=== PATIENT | male | born 1945 | race Hispanic/Latino ===

== ENCOUNTER 2017-11-12 09:37 | Inpatient (IN) | payer OTHER ==
[~2017-11-12] VITALS: Ht 167.6 cm; Wt 87.6 kg
[2017-11-12] MEDS ORDERED: ENOXAPARIN SODIUM 100 MG/1 ML SQ ONE (10:16)
[2017-11-12] MEDS ORDERED: ASPIRIN 81MG TAB.CHEW ONE (10:16)
[2017-11-12 10:17] LABS: BASOPHILS % (AUTO) 0.3 % (0.0-5.0); EOSINOPHILS % (AUTO) 0.1 % (0.0-8.0); HEMATOCRIT 37.1 % (42-54); LYMPHOCYTES % (AUTO) 14.6 % (21.0-51.0); MEAN CORPUSCULAR HEMOGLOBIN 31.1 pg (27.0-33.0); MEAN CORPUSCULAR HGB CONC 34.1 g/dL (32.0-36.0); MEAN CORPUSCULAR VOLUME 91.1 fL (79-99); MONOCYTES % (AUTO) 7.9 % (3.0-13.0); NEUTROPHILS % (AUTO) 77.1 % (40.0-77.0); PLATELET COUNT (AUTO) 107 K/uL (130-400); RED BLOOD CELL COUNT(AUTO) 4.08 MIL/uL (4.50-6.20); RED CELL DISTRIBUTION WIDTH 12.7 % (11.0-15.5); WHITE BLOOD COUNT (AUTO) 6.8 K/uL (4.8-10.8)
[2017-11-12] MEDS ORDERED: CLOPIDOGREL BISULFATE 75 MG TAB ONE (10:17)
[2017-11-12 10:41] LABS: CREATININE 0.9 mg/dL (0.5-1.5)
[2017-11-12 10:54] LABS: ALBUMIN 3.7 g/dL (3.5-5.0); BILIRUBIN,TOTAL 0.4 mg/dL (0.2-1.0); CREATINE KINASE MB 1.4 ng/mL (0.5-3.6); TOTAL PROTEIN, SERUM 6.7 g/dL (6.0-8.3)
[2017-11-12 12:25] VITALS: BP 138/80
[2017-11-12 16:04] VITALS: BP 122/69
[2017-11-12 16:07] VITALS: BP 122/69
[2017-11-12] MEDS ORDERED: DEXTROSE 5 %-0.45 % NACL 1,000 ML IV SCH (16:45)
[2017-11-12] MEDS ORDERED: NITROGLYCERIN 0.4 MG SL TAB SL PRN (16:45)
[2017-11-12 17:09] LABS: CREATINE KINASE MB 0.7 ng/mL (0.5-3.6)
[2017-11-12 17:19] LABS: TROPONIN I 1.52 ng/mL (0.00-0.06)
[2017-11-12] MEDS: NITROGLYCERIN 1GM/1 INCH PACKET TD SCH ×2 (17:55→22:08)
[2017-11-12 19:18] VITALS: BP 122/63
[2017-11-12] MEDS: CARVEDILOL 3.125 MG TABLET PO SCH (21:13)
[2017-11-12 23:02] LABS: CREATINE KINASE MB 0.6 ng/mL (0.5-3.6)
[2017-11-12 23:07] LABS: TROPONIN I 1.33 ng/mL (0.00-0.06)
[2017-11-12 23:48] VITALS: BP 116/60
[2017-11-13] VITALS (17 sets, daily range): BP systolic 101–158; BP diastolic 46–111
[2017-11-13] MEDS: NITROGLYCERIN 1GM/1 INCH PACKET TD SCH ×2 (04:00→08:32)
[2017-11-13 04:47] LABS: INR 1.05 (0.85-1.15); PARTIAL THROMBOPLASTIN TIME 27.6 SEC (26.3-35.5)
[2017-11-13] MEDS ORDERED: HEPARIN SODIUM 1000UNIT/ML 10ML VIAL ONE ×3 (07:48→14:13)
[2017-11-13] MEDS ORDERED: IOPAMIDOL-370 100 ML VIAL IV ONE (07:49)
[2017-11-13] MEDS ORDERED: LIDOCAINE HCL 2% 20ML ONE (07:49)
[2017-11-13] MEDS ORDERED: IOPAMIDOL-370 75 ML VIAL IV ONE (07:49)
[2017-11-13] MEDS: CARVEDILOL 3.125 MG TABLET PO SCH (08:32)
[2017-11-13] MEDS ORDERED: ENOXAPARIN SODIUM 80 MG/0.8 ML SQ SCH (09:00)
[2017-11-13] MEDS ORDERED: CLOPIDOGREL BISULFATE 75 MG TAB PO SCH (09:00)
[2017-11-13] MEDS ORDERED: HEPARIN 25000 UNITS/250 ML D5W 250 ML IV ONE (09:28)
[2017-11-13] MEDS ORDERED: HEPARIN 25000 UNITS/250 ML D5W 250 ML IV PRN (09:45)
[2017-11-13 09:54] LABS: HEMOGLOBIN A1C 5.5 % (4.0-6.0)
[2017-11-13] MEDS ORDERED: CEFUROXIME 1.5GM+NS 100ML 100 ML IV SCH ×2 (11:45→23:00)
[2017-11-13] MEDS ORDERED: NITROGLYCERIN 1GM/1 INCH PACKET TD SCH (11:56)
[2017-11-13] MEDS ORDERED: CEFUROXIME SODIUM 1.5 GM VIAL IVP SCH ×2 (12:00→23:00)
[2017-11-13] MEDS: WATER FOR INJECTION,STERILE 20 ML VIAL IJ SCH (12:00)
[2017-11-13] MEDS ORDERED: SODIUM BICARB 8.4% 50ML SYRINGE ONE ×3 (13:05→18:16)
[2017-11-13] MEDS ORDERED: NITROGLYCERIN 50 MG/D5% WATER 1 BOT ONE (13:06)
[2017-11-13] MEDS ORDERED: AMINOCAPROIC ACID 250 MG/ML 20 ML VIAL IV ONE ×2 (13:07→13:19)
[2017-11-13] MEDS ORDERED: ESMOLOL HCL 10 MG/ML 10 ML VIAL ONE (13:18)
[2017-11-13] MEDS ORDERED: AMIODARONE HCL 900MG/18ML IV ONE (13:18)
[2017-11-13] MEDS ORDERED: EPINEPHRINE 1 MG/ML AMPULE ONE (13:18)
[2017-11-13] MEDS ORDERED: ROCURONIUM BROMIDE 10MG/1ML 5ML VL ONE ×2 (13:18→18:16)
[2017-11-13] MEDS ORDERED: PROTAMINE SULFATE 10 MG/ML 25ML VIAL IV ONE (13:18)
[2017-11-13] MEDS ORDERED: GLYCOPYRROLATE 0.2 MG/ML 5 ML VIAL ONE (13:18)
[2017-11-13] MEDS ORDERED: MILRINONE-D5W 20 MG/100 ML 0 ML IV ONE (13:18)
[2017-11-13] MEDS ORDERED: NEOSTIGMINE METHYLSULFATE 1MG/ML IV ONE (13:18)
[2017-11-13] MEDS ORDERED: FENTANYL CITRATE PF 50 MCG/1 ML 20ML VIAL IJ ONE (13:19)
[2017-11-13] MEDS ORDERED: NOREPINEPHRINE BITARTRATE 1 MG/1 ML ML IV ONE (13:19)
[2017-11-13] MEDS ORDERED: CALCIUM CHLORIDE 100 MG/ML 10 ML SYG IVP ONE ×4 (13:19→18:17)
[2017-11-13] MEDS ORDERED: PROPOFOL 10 MG/ML 20ML VIAL IV ONE (13:20)
[2017-11-13] MEDS ORDERED: MIDAZOLAM HCL 1 MG/ML 5ML VIAL ONE (13:20)
[2017-11-13] MEDS ORDERED: THROMBIN-JMI 5000 UNIT/VIAL TP ONE (13:57)
[2017-11-13 14:07] LABS: ABG BASE EXCESS -2.3 mmol/L (-2.0-3.0); ABG HCO3 22.1 mmol/L (21.0-28.0); ABG OXYGEN SATURATION 90.3 % (95.0-99.0); ABG PCO2 37 mmHg (35-48)
[2017-11-13] MEDS ORDERED: OCTYL 2-CYANOACRYLATE 1 EACH TP ONE (14:13)
[2017-11-13] MEDS ORDERED: BACITRACIN 50,000 UNIT VIAL ONE (14:14)
[2017-11-13] MEDS ORDERED: PAPAVERINE HCL 30 MG/ML 2ML VIAL ONE (14:14)
[2017-11-13] MEDS ORDERED: SODIUM CHLORIDE 0.9% 500ML 500 ML IV SCH (14:57)
[2017-11-13] MEDS ORDERED: SODIUM CHLORIDE 0.9% 10 ML VIAL IVP PRN (15:00)
[2017-11-13] MEDS ORDERED: NITROGLYCERIN 50 MG/D5% WATER 250 BOT IV SCH (15:00)
[2017-11-13] MEDS ORDERED: MORPHINE SULFATE 2 MG/ML 1ML SYG IV PRN (15:00)
[2017-11-13] MEDS ORDERED: POTASSIUM PHOS 15 mMOL+NS250ML 250 ML IV PRN (15:00)
[2017-11-13] MEDS ORDERED: HYDROCODONE/ACETAMINOPHEN 5/325 MG TAB PO PRN ×2 (15:00)
[2017-11-13] MEDS ORDERED: CALCIUM GLUCONATE 1 GM in SODIUM CHLORIDE 0.9% 50 ML IV PRN (15:00)
[2017-11-13] MEDS ORDERED: PROPOFOL 1000 MG/100 ML 100 ML IV PRN (15:00)
[2017-11-13] MEDS ORDERED: ACETAMINOPHEN 650 MG SUPPOSITORY RC PRN (15:00)
[2017-11-13] MEDS ORDERED: SODIUM CHLORIDE 0.9% 250 ML IV PRN (15:00)
[2017-11-13] MEDS ORDERED: EPINEPHRINE 2 MG in DEXTROSE 5%-WATER 250 ML IV PRN (15:00)
[2017-11-13] MEDS ORDERED: ACETAMINOPHEN 325 MG TAB PO PRN (15:00)
[2017-11-13] MEDS ORDERED: SODIUM CHLORIDE 0.9% 1000ML 1,000 ML IV SCH (15:00)
[2017-11-13] MEDS ORDERED: MAGNESIUM 2GM PREMIX 50ML 50 ML IV PRN (15:00)
[2017-11-13] MEDS ORDERED: INSULIN REGULAR, HUMAN 3ML 100 UNIT in SODIUM CHLORIDE 0.9% 99 ML IV SCH ×2 (15:00)
[2017-11-13] MEDS ORDERED: GLUCAGON 1MG KIT 1 MG ML IM PRN (15:00)
[2017-11-13] MEDS ORDERED: DEXTROSE 50%-WATER 50 ML DISP.SYRIN IV PRN (15:00)
[2017-11-13] MEDS ORDERED: ONDANSETRON HCL 4 MG/2 ML VIAL IV PRN (15:00)
[2017-11-13] MEDS ORDERED: ALBUMIN (HUMAN) 5% 250 ML IV PRN (15:00)
[2017-11-13 15:16] LABS: ABG BASE EXCESS -0.7 mmol/L (-2.0-3.0); ABG HCO3 22.3 mmol/L (21.0-28.0); ABG OXYGEN SATURATION 99.3 % (95.0-99.0); ABG PCO2 32 mmHg (35-48)
[2017-11-13] MEDS ORDERED: CEFUROXIME SODIUM 1.5 GM VIAL ONE (15:23)
[2017-11-13] MEDS ORDERED: POTASSIUM CHLORIDE 20MEQ/100ML 100 ML IV ONE (15:27)
[2017-11-13] MEDS ORDERED: MAGNESIUM SULFATE 1 GM/2 ML VIAL ONE (15:27)
[2017-11-13 16:18] LABS: ABG BASE EXCESS -2.3 mmol/L (-2.0-3.0); ABG PCO2 42 mmHg (35-48)
[2017-11-13 16:58] LABS: ABG BASE EXCESS 1.6 mmol/L (-2.0-3.0); ABG HCO3 25.6 mmol/L (21.0-28.0); ABG PCO2 38 mmHg (35-48)
[2017-11-13 18:13] LABS: ABG BASE EXCESS -5.2 mmol/L (-2.0-3.0); ABG HCO3 18.5 mmol/L (21.0-28.0); ABG OXYGEN SATURATION 98.9 % (95.0-99.0); ABG PCO2 30 mmHg (35-48)
[2017-11-13] MEDS ORDERED: SODIUM BICARB 50MEQ 50ML VIAL ONE ×4 (18:16→22:02)
[2017-11-13 19:13] LABS: ABG BASE EXCESS 0.2 mmol/L (-2.0-3.0); ABG OXYGEN SATURATION 96.2 % (95.0-99.0); ABG PCO2 41 mmHg (35-48)
[2017-11-13 19:16] LABS: HEMATOCRIT 35.8 % (42-54); MEAN CORPUSCULAR HEMOGLOBIN 30.8 pg (27.0-33.0); MEAN CORPUSCULAR HGB CONC 33.8 g/dL (32.0-36.0); MEAN CORPUSCULAR VOLUME 91.1 fL (79-99); PLATELET COUNT (AUTO) 142 K/uL (130-400); RED BLOOD CELL COUNT(AUTO) 3.93 MIL/uL (4.50-6.20); RED CELL DISTRIBUTION WIDTH 12.6 % (11.0-15.5); WHITE BLOOD COUNT (AUTO) 21.6 K/uL (4.8-10.8)
[2017-11-13 19:28] LABS: CREATININE 1.2 mg/dL (0.5-1.5); MAGNESIUM 1.5 mg/dL (1.80-2.40); PHOSPHORUS 4.8 mg/dL (2.5-4.9); POTASSIUM 3.9 mmol/L (3.5-5.1)
[2017-11-13] MEDS: POTASSIUM CHLORIDE 20MEQ/100ML 100 ML IV PRN ×3 (19:31→23:19)
[2017-11-13] MEDS: MORPHINE SULFATE 4 MG/1ML SYG IV PRN (19:56)
[2017-11-13] MEDS: NOREPINEPHRINE 4MG/NS 250ML 250 ML IV PRN (20:28)
[2017-11-13 21:51] LABS: ABG HCO3 22.9 mmol/L (21.0-28.0); ABG PCO2 40 mmHg (35-48)
[2017-11-13 21:55] LABS: ABG BASE EXCESS -4.2 mmol/L (-2.0-3.0); ABG HCO3 20.4 mmol/L (21.0-28.0); ABG OXYGEN SATURATION 97.9 % (95.0-99.0); ABG PCO2 36 mmHg (35-48)
[2017-11-13] MEDS: SODIUM BICARB 8.4% 50ML SYRINGE IV PRN ×2 (21:58→22:03)
[2017-11-13] MEDS ORDERED: WATER FOR INJECTION,STERILE 20 ML VIAL IJ SCH (23:00)
[2017-11-13 23:10] LABS: ABG BASE EXCESS 2.8 mmol/L (-2.0-3.0); ABG HCO3 27.4 mmol/L (21.0-28.0); ABG OXYGEN SATURATION 95.7 % (95.0-99.0); ABG PCO2 42 mmHg (35-48)
[2017-11-14] VITALS (28 sets, daily range): BP systolic 102–140; BP diastolic 44–66
[2017-11-14] MEDS: POTASSIUM CHLORIDE 20MEQ/100ML 100 ML IV PRN (00:40)
[2017-11-14] MEDS: MORPHINE SULFATE 4 MG/1ML SYG IV PRN (01:00)
[2017-11-14 03:11] LABS: ABG BASE EXCESS 1.8 mmol/L (-2.0-3.0); ABG HCO3 26.4 mmol/L (21.0-28.0); ABG OXYGEN SATURATION 96.8 % (95.0-99.0); ABG PCO2 42 mmHg (35-48)
[2017-11-14] MEDS: WATER FOR INJECTION,STERILE 20 ML VIAL IJ SCH ×3 (04:21→17:36)
[2017-11-14] MEDS: CEFUROXIME SODIUM 1.5 GM VIAL IVP SCH ×2 (04:21→17:36)
[2017-11-14 04:28] LABS: HEMATOCRIT 34.1 % (42-54); MEAN CORPUSCULAR HEMOGLOBIN 31.8 pg (27.0-33.0); MEAN CORPUSCULAR HGB CONC 34.5 g/dL (32.0-36.0); MEAN CORPUSCULAR VOLUME 92.1 fL (79-99); PLATELET COUNT (AUTO) 144 K/uL (130-400); RED CELL DISTRIBUTION WIDTH 12.5 % (11.0-15.5); WHITE BLOOD COUNT (AUTO) 16.2 K/uL (4.8-10.8)
[2017-11-14 04:42] LABS: CREATININE 1.3 mg/dL (0.5-1.5); PHOSPHORUS 3.7 mg/dL (2.5-4.9); POTASSIUM 4.3 mmol/L (3.5-5.1)
[2017-11-14] MEDS: NOREPINEPHRINE 4MG/NS 250ML 250 ML IV PRN (06:43)
[2017-11-14] MEDS: PANTOPRAZOLE SODIUM 40 MG TABLET.DR PO SCH (07:54)
[2017-11-14 07:57] LABS: ABG BASE EXCESS -0.1 mmol/L (-2.0-3.0); ABG HCO3 24.1 mmol/L (21.0-28.0); ABG OXYGEN SATURATION 97.2 % (95.0-99.0); ABG PCO2 38 mmHg (35-48)
[2017-11-14] MEDS ORDERED: DEXTROSE 50%-WATER 50 ML DISP.SYRIN IV PRN (18:30)
[2017-11-14] MEDS ORDERED: ASPIRIN 81MG TAB.CHEW PO SCH (18:30)
[2017-11-14] MEDS ORDERED: GLUCAGON 1MG KIT 1 MG ML IM PRN (18:30)
[2017-11-14] MEDS ORDERED: CALCIUM GLUCONATE 1 GM/10 ML VIAL IV SCH (18:30)
[2017-11-14] MEDS: INSULIN HUMULIN R 100 UNIT/ML 3ML SQ SCH (21:00)
[2017-11-14] MEDS: FUROSEMIDE 10 MG/ML 2ML VIAL IV SCH (21:20)
[2017-11-14] MEDS: POTASSIUM CHLORIDE 20 MEQ ERTAB PO SCH (21:21)
[2017-11-14] MEDS: GUAIFENESIN 600 MG TABLET.ER PO SCH (21:46)
[2017-11-15] VITALS (46 sets, daily range): BP systolic 96–134; BP diastolic 53–78
[2017-11-15] MEDS ORDERED: AMIODARONE HCL 900MG/18ML IV ONE (03:47)
[2017-11-15 04:14] LABS: HEMATOCRIT 31.6 % (42-54); MEAN CORPUSCULAR HEMOGLOBIN 32.3 pg (27.0-33.0); MEAN CORPUSCULAR HGB CONC 34.9 g/dL (32.0-36.0); MEAN CORPUSCULAR VOLUME 92.4 fL (79-99); MONOCYTES % (AUTO) 6.8 % (3.0-13.0); NEUTROPHILS % (AUTO) 86.2 % (40.0-77.0); NUCLEATED RED BLOOD CELLS 0.1 % (0.0-0.19); PLATELET COUNT (AUTO) 85 K/uL (130-400); RED BLOOD CELL COUNT(AUTO) 3.42 MIL/uL (4.50-6.20); RED CELL DISTRIBUTION WIDTH 13.2 % (11.0-15.5); WHITE BLOOD COUNT (AUTO) 12.9 K/uL (4.8-10.8)
[2017-11-15] MEDS ORDERED: AMIODARONE HCL 900 MG in DEXTROSE 5%-WATER 500 ML IV SCH (04:15)
[2017-11-15 04:26] LABS: CREATININE 1.2 mg/dL (0.5-1.5)
[2017-11-15] MEDS ORDERED: AMIODARONE HCL 150 MG in DEXTROSE 5%-WATER 100 ML IV SCH (04:30)
[2017-11-15] MEDS: INSULIN HUMULIN R 100 UNIT/ML 3ML SQ SCH ×4 (06:19→21:00)
[2017-11-15] MEDS ORDERED: CEFUROXIME SODIUM 1.5 GM VIAL ONE (06:39)
[2017-11-15] MEDS: CEFUROXIME SODIUM 1.5 GM VIAL IVP SCH (06:41)
[2017-11-15] MEDS: FUROSEMIDE 10 MG/ML 2ML VIAL IV SCH ×2 (06:41→18:18)
[2017-11-15] MEDS: WATER FOR INJECTION,STERILE 20 ML VIAL IJ SCH ×2 (06:41→11:41)
[2017-11-15] MEDS: POTASSIUM CHLORIDE 20 MEQ ERTAB PO SCH ×2 (08:51→21:51)
[2017-11-15] MEDS: METOPROLOL TARTRATE 25 MG TAB PO SCH ×2 (08:51→21:00)
[2017-11-15] MEDS: ASPIRIN 81 MG EC TAB PO SCH (08:51)
[2017-11-15] MEDS: PANTOPRAZOLE SODIUM 40 MG TABLET.DR PO SCH (08:51)
[2017-11-15] MEDS ORDERED: METOPROLOL TARTRATE 25 MG TAB PO SCH (09:00)
[2017-11-15] MEDS ORDERED: INSULIN DETEMIR 10ML 100 UNIT/ML 10ML SQ SCH (09:00)
[2017-11-15] MEDS ORDERED: ATORVASTATIN CALCIUM 20 MG TABLET PO SCH (09:00)
[2017-11-15] MEDS: GUAIFENESIN 600 MG TABLET.ER PO SCH ×2 (09:06→21:51)
[2017-11-16] VITALS (26 sets, daily range): BP systolic 107–153; BP diastolic 47–79
[2017-11-16 04:19] LABS: HEMATOCRIT 29.6 % (42-54); MEAN CORPUSCULAR HEMOGLOBIN 31.7 pg (27.0-33.0); MEAN CORPUSCULAR HGB CONC 34.1 g/dL (32.0-36.0); MEAN CORPUSCULAR VOLUME 93.1 fL (79-99); PLATELET COUNT (AUTO) 87 K/uL (130-400); RED BLOOD CELL COUNT(AUTO) 3.18 MIL/uL (4.50-6.20); RED CELL DISTRIBUTION WIDTH 13.1 % (11.0-15.5); WHITE BLOOD COUNT (AUTO) 13.1 K/uL (4.8-10.8)
[2017-11-16 04:33] LABS: ALBUMIN 2.1 g/dL (3.5-5.0); BILIRUBIN,TOTAL 0.5 mg/dL (0.2-1.0); CREATININE 1.1 mg/dL (0.5-1.5); POTASSIUM 4.1 mmol/L (3.5-5.1); TOTAL PROTEIN, SERUM 5.5 g/dL (6.0-8.3)
[2017-11-16 04:59] LABS: LYMPHOCYTES % (MANUAL) 6 % (22-44); MAN.DIFF COMMENT-IMPRESSION MANUAL DIFFERENTIAL; MONOCYTES % (MANUAL) 5 % (2-9); PLATELET MORPHOLOGY COMMENT DECREASED; SEGMENTED NEUTROPHILS % 89 % (40-70)
[2017-11-16] MEDS: FUROSEMIDE 10 MG/ML 2ML VIAL IV SCH ×2 (06:21→20:02)
[2017-11-16] MEDS: METOCLOPRAMIDE 10 MG/2 ML VIAL IVP SCH ×4 (06:21→18:00)
[2017-11-16] MEDS: INSULIN HUMULIN R 100 UNIT/ML 3ML SQ SCH ×4 (06:22→20:57)
[2017-11-16] MEDS: ASPIRIN 81 MG EC TAB PO SCH (08:19)
[2017-11-16] MEDS: GUAIFENESIN 600 MG TABLET.ER PO SCH ×2 (08:19→20:57)
[2017-11-16] MEDS: METOPROLOL TARTRATE 25 MG TAB PO SCH ×2 (08:20→20:57)
[2017-11-16] MEDS: PANTOPRAZOLE SODIUM 40 MG TABLET.DR PO SCH (08:20)
[2017-11-16] MEDS: AMIODARONE HCL 200 MG TABLET PO SCH ×2 (08:20→20:57)
[2017-11-16] MEDS: POTASSIUM CHLORIDE 20 MEQ ERTAB PO SCH ×2 (08:21→20:57)
[2017-11-16] MEDS: TRAMADOL HCL 50 MG TABLET PO PRN ×2 (08:21→23:05)
[2017-11-16] MEDS: INSULIN DETEMIR 10ML 100 UNIT/ML 10ML SQ SCH (08:24)
[2017-11-16] MEDS: WATER FOR INJECTION,STERILE 20 ML VIAL IJ SCH (12:00)
[2017-11-16] MEDS: ATORVASTATIN CALCIUM 20 MG TABLET PO SCH (20:57)
[2017-11-17] MEDS: METOCLOPRAMIDE 10 MG/2 ML VIAL IVP SCH ×4 (00:06→17:25)
[2017-11-17 03:32] VITALS: BP 108/66
[2017-11-17] MEDS: FUROSEMIDE 10 MG/ML 2ML VIAL IV SCH ×2 (05:55→17:25)
[2017-11-17] MEDS: INSULIN DETEMIR 10ML 100 UNIT/ML 10ML SQ SCH (06:00)
[2017-11-17] MEDS: INSULIN HUMULIN R 100 UNIT/ML 3ML SQ SCH ×4 (06:01→20:38)
[2017-11-17 07:26] VITALS: BP 108/51
[2017-11-17] MEDS: AMIODARONE HCL 200 MG TABLET PO SCH ×2 (09:00→09:38)
[2017-11-17] MEDS: POTASSIUM CHLORIDE 20 MEQ ERTAB PO SCH ×2 (09:38→20:33)
[2017-11-17] MEDS: PANTOPRAZOLE SODIUM 40 MG TABLET.DR PO SCH (09:38)
[2017-11-17] MEDS: ASPIRIN 81 MG EC TAB PO SCH (09:38)
[2017-11-17] MEDS: GUAIFENESIN 600 MG TABLET.ER PO SCH ×2 (09:38→20:33)
[2017-11-17] MEDS: METOPROLOL TARTRATE 25 MG TAB PO SCH ×2 (09:38→20:34)
[2017-11-17 11:21] VITALS: BP 109/58
[2017-11-17] MEDS: WATER FOR INJECTION,STERILE 20 ML VIAL IJ SCH (11:50)
[2017-11-17 16:14] VITALS: BP 114/58
[2017-11-17 19:39] VITALS: BP 117/55
[2017-11-17] MEDS: ATORVASTATIN CALCIUM 20 MG TABLET PO SCH (20:34)
[2017-11-17 23:57] VITALS: BP 115/57
[2017-11-18] MEDS: METOCLOPRAMIDE 10 MG/2 ML VIAL IVP SCH ×2 (00:18→06:22)
[2017-11-18 03:49] VITALS: BP 111/59
[2017-11-18 03:58] LABS: HEMATOCRIT 25.7 % (42-54); MEAN CORPUSCULAR HEMOGLOBIN 32.2 pg (27.0-33.0); MEAN CORPUSCULAR HGB CONC 35.2 g/dL (32.0-36.0); MEAN CORPUSCULAR VOLUME 91.6 fL (79-99); PLATELET COUNT (AUTO) 110 K/uL (130-400); RED CELL DISTRIBUTION WIDTH 12.7 % (11.0-15.5); WHITE BLOOD COUNT (AUTO) 6.5 K/uL (4.8-10.8)
[2017-11-18 04:15] LABS: CREATININE 1.2 mg/dL (0.5-1.5); POTASSIUM 3.6 mmol/L (3.5-5.1)
[2017-11-18] MEDS: INSULIN DETEMIR 10ML 100 UNIT/ML 10ML SQ SCH (06:20)
[2017-11-18] MEDS: FUROSEMIDE 10 MG/ML 2ML VIAL IV SCH (06:21)
[2017-11-18] MEDS: INSULIN HUMULIN R 100 UNIT/ML 3ML SQ SCH (06:29)
[2017-11-18 07:34] VITALS: BP 100/47
[2017-11-18] MEDS: POTASSIUM CHLORIDE 20 MEQ ERTAB PO SCH (08:55)
[2017-11-18] MEDS: ASPIRIN 81 MG EC TAB PO SCH (08:55)
[2017-11-18] MEDS: GUAIFENESIN 600 MG TABLET.ER PO SCH (08:55)
[2017-11-18] MEDS: METOPROLOL TARTRATE 25 MG TAB PO SCH (08:55)
[2017-11-18] MEDS: AMIODARONE HCL 200 MG TABLET PO SCH (08:55)
[2017-11-18] MEDS: PANTOPRAZOLE SODIUM 40 MG TABLET.DR PO SCH (08:55)
[2017-11-18 11:10] VITALS: BP 112/59
== END 2017-11-18 17:30 | disposition home or self-care (01) | DRG 234 ==
LOC: EDH 09:37 → OBSVTOIN 09:38 → EDHIP 09:38 → 2DH 12:21 → 2CH 11-13 10:31 → 2CV 11-13 14:08 → 2CH 11-14 15:14 → 2AH 11-16 17:10
PROVIDERS: ADMIT Internal Medicine; ATTEND Internal Medicine
PROC: 02100Z9 Bypass Coronary Artery, One Artery from Left Internal Mammary, Open Approach (ICD-10-PCS; 2017-11-13)
PROC: 06BP4ZZ Excision of Right Saphenous Vein, Percutaneous Endoscopic Approach (ICD-10-PCS; 2017-11-13)
PROC: 06BQ4ZZ Excision of Left Saphenous Vein, Percutaneous Endoscopic Approach (ICD-10-PCS; 2017-11-13)
PROC: B2111ZZ Fluoroscopy of Multiple Coronary Arteries using Low Osmolar Contrast (ICD-10-PCS; 2017-11-13)
PROC: B2151ZZ Fluoroscopy of Left Heart using Low Osmolar Contrast (ICD-10-PCS; 2017-11-13)
PROC: 021209W Bypass Coronary Artery, Three Arteries from Aorta with Autologous Venous Tissue, Open Approach (ICD-10-PCS; principal; 2017-11-13 13:34)
PROC: 4A023N7 Measurement of Cardiac Sampling and Pressure, Left Heart, Percutaneous Approach (ICD-10-PCS; 2017-11-13 13:34)
PROC: 5A02210 Assistance with Cardiac Output using Balloon Pump, Continuous (ICD-10-PCS; 2017-11-13 13:34)
DX: I21.4 Non-ST elevation (NSTEMI) myocardial infarction (principal); E46 Unspecified protein-calorie malnutrition; D69.6 Thrombocytopenia, unspecified; I48.0 Paroxysmal atrial fibrillation; D62 Acute posthemorrhagic anemia; I24.9 Acute ischemic heart disease, unspecified; E11.9 Type 2 diabetes mellitus without complications; E78.00 Pure hypercholesterolemia, unspecified; I25.110 Atherosclerotic heart disease of native coronary artery with unstable angina pectoris; H91.90 Unspecified hearing loss, unspecified ear; E78.5 Hyperlipidemia, unspecified; I11.9 Hypertensive heart disease without heart failure; Z68.31 Body mass index [BMI] 31.0-31.9, adult
CPT/HCPCS: 33967; 36415; 36600; 71010; 71020; 71045; 80048; 80053; 82330; 82435; 82550; 82553; 82803; 82947; 82948; 83036; 83605; 83735; 83874; 84100; 84132; 84295; 84484; 85018; 85025; 85027; 85347; 85610; 85730; 86850; 86900; 86901; 86922; 93005; 93306; 93458; 93880; 94002; 94003; 94010; 94150; 97039; A7048; C1894; J0171; J0282; J0610; J0697; J1644; J1650; J1815; J1940; J2250; J2260; J2270; J2440; J2704; J2710; J2720; J2765; J3010; J3475; J3480; J3490; J7030; J7040; J7042; J7060; P9045; Q9967

== ENCOUNTER → 2019-06-15 | Outpatient (CLI) | payer OTHER | END | disposition home or self-care (01) | LOC: SHCH 14:42 | PROVIDERS: ATTEND Internal Medicine Cardiovascular Disease | DX: I73.9 Peripheral vascular disease, unspecified (principal) | CPT/HCPCS: 93925 ==

== ENCOUNTER 2019-10-17 13:36 | Emergency (ER) | payer OTHER ==
[2019-10-17 14:12] LABS: BASOPHILS % (AUTO) 0.4 % (0.0-5.0); EOSINOPHILS % (AUTO) 0.8 % (0.0-8.0); LYMPHOCYTES % (AUTO) 24.4 % (21.0-51.0); MEAN CORPUSCULAR HGB CONC 32.5 g/dL (32.0-36.0); MEAN CORPUSCULAR VOLUME 86.2 fL (79-99); MONOCYTES % (AUTO) 7.8 % (3.0-13.0); NEUTROPHILS % (AUTO) 66.6 % (40.0-77.0); NUCLEATED RED BLOOD CELLS 0.1 % (0.0-0.19); PLATELET COUNT (AUTO) 124 K/uL (130-400); RED BLOOD CELL COUNT(AUTO) 4.29 MIL/uL (4.50-6.20); RED CELL DISTRIBUTION WIDTH 17.3 % (11.0-15.5); WHITE BLOOD COUNT (AUTO) 5.8 K/uL (4.8-10.8)
[2019-10-17 14:30] LABS: CREATININE 1.1 mg/dL (0.5-1.5); POTASSIUM 4.1 mmol/L (3.5-5.1)
[2019-10-17 14:32] LABS: INR 1.05 (0.85-1.15); PARTIAL THROMBOPLASTIN TIME 28.5 SEC (26.3-35.5)
[2019-10-17 14:35] LABS: ALBUMIN 3.8 g/dL (3.5-5.0); BILIRUBIN,TOTAL 0.7 mg/dL (0.2-1.0)
[2019-10-17] MEDS ORDERED: TRAMADOL HCL 50 MG TABLET ONE (15:41)
== END 2019-10-17 16:30 | disposition home or self-care (01) ==
LOC: EDH 13:36
DX: M79.605 Pain in left leg (principal); I10 Essential (primary) hypertension; E78.00 Pure hypercholesterolemia, unspecified; R74.8 Abnormal levels of other serum enzymes
CPT/HCPCS: 36415; 71045; 80053; 82550; 84484; 85025; 85610; 85730; 93005; 93926; 93971

== ENCOUNTER → 2019-10-19 | Outpatient (CLI) | payer OTHER ==
[~2019-10-19] MED LIST: IOHEXOL-350 50ML VIAL IV ONE; IOHEXOL-350 75 ML VIAL IV ONE
== END | disposition home or self-care (01) ==
LOC: RAH 07:50
PROVIDERS: ATTEND Internal Medicine Cardiovascular Disease
DX: I70.203 Unspecified atherosclerosis of native arteries of extremities, bilateral legs (principal); I70.0 Atherosclerosis of aorta
CPT/HCPCS: 75635; Q9967 ×2

== ENCOUNTER → 2019-11-04 | Outpatient (CLI) | payer OTHER | END | disposition home or self-care (01) | LOC: OIH 14:07 | PROVIDERS: ATTEND Internal Medicine | DX: M11.262 Other chondrocalcinosis, left knee (principal); M25.862 Other specified joint disorders, left knee | CPT/HCPCS: 73560 ==

== ENCOUNTER → 2019-11-09 | Outpatient (CLI) | payer OTHER | END | disposition home or self-care (01) | LOC: OIH 08:08 | PROVIDERS: ATTEND Internal Medicine | DX: M47.26 Other spondylosis with radiculopathy, lumbar region (principal); M25.78 Osteophyte, vertebrae; M48.07 Spinal stenosis, lumbosacral region; M85.88 Other specified disorders of bone density and structure, other site | CPT/HCPCS: 72100 ==

== ENCOUNTER → 2019-11-26 | Outpatient (CLI) | payer OTHER ==
[2019-11-26 11:54] LABS: CREATININE 1.1 mg/dL (0.5-1.5)
== END | disposition home or self-care (01) ==
LOC: LAB 10:51
PROVIDERS: ATTEND Internal Medicine
DX: M54.16 Radiculopathy, lumbar region (principal)
CPT/HCPCS: 36415; 82565; 84520

== ENCOUNTER → 2019-12-01 | Outpatient (CLI) | payer OTHER ==
[~2019-12-01] MED LIST changes: -IOHEXOL-350 50ML VIAL IV ONE
== END | disposition home or self-care (01) ==
LOC: RAH 12:40
PROVIDERS: ATTEND Internal Medicine
DX: G95.19 Other vascular myelopathies (principal); M54.16 Radiculopathy, lumbar region; M40.46 Postural lordosis, lumbar region; N20.0 Calculus of kidney
CPT/HCPCS: 72133; Q9967

== ENCOUNTER 2020-12-16 08:57 | Observation (INO) | payer OTHER ==
[~2020-12-16] VITALS: Ht 172.7 cm; Wt 84.9 kg
[2020-12-16 09:27] LABS: BASOPHILS % (AUTO) 0.2 % (0.0-5.0); EOSINOPHILS % (AUTO) 0.1 % (0.0-8.0); HEMATOCRIT 23.7 % (42-54); LYMPHOCYTES % (AUTO) 15.1 % (21.0-51.0); MEAN CORPUSCULAR HEMOGLOBIN 32.1 pg (27.0-33.0); MEAN CORPUSCULAR HGB CONC 32.5 g/dL (32.0-36.0); MEAN CORPUSCULAR VOLUME 98.8 fL (79-99); MONOCYTES % (AUTO) 6.4 % (3.0-13.0); NEUTROPHILS % (AUTO) 77.2 % (40.0-77.0); PLATELET COUNT (AUTO) 130 K/uL (130-400); RED CELL DISTRIBUTION WIDTH 13.8 % (11.0-15.5); WHITE BLOOD COUNT (AUTO) 9.6 K/uL (4.8-10.8)
[2020-12-16 09:42] LABS: CREATININE 1.3 mg/dL (0.5-1.5); POTASSIUM 4.4 mmol/L (3.5-5.1)
[2020-12-16 09:43] LABS: INR 1.11 (0.85-1.15)
[2020-12-16 09:44] LABS: PARTIAL THROMBOPLASTIN TIME 23.1 SEC (26.3-35.5)
[2020-12-16 09:46] LABS: ALBUMIN 2.9 g/dL (3.5-5.0); BILIRUBIN,TOTAL 0.4 mg/dL (0.2-1.0); TOTAL PROTEIN, SERUM 5.3 g/dL (6.0-8.3)
[2020-12-16] MEDS ORDERED: SODIUM CHLORIDE 0.9% 1000ML 1,000 ML IV ONE (09:52)
[2020-12-16] MEDS ORDERED: PANTOPRAZOLE 40 MG/VIAL ONE ×2 (11:07→21:13)
[2020-12-16] MEDS ORDERED: 1/2 NORMAL SALINE 1,000 ML IV SCH (11:15)
[2020-12-16] MEDS: PANTOPRAZOLE 40 MG/VIAL IVP SCH ×2 (11:15→23:15)
[2020-12-16 20:18] LABS: APPEARANCE,URINE Clear (CLEAR); BILIRUBIN,URINE Negative (NEGATIVE); COLOR,URINE Yellow (YELLOW); GLUCOSE, URINE (UA) Negative (NEGATIVE); KETONES,URINE Negative (NEGATIVE); LEUKOCYTE ESTERASE ,URINE Negative (NEGATIVE); NITRATE,URINE Negative (NEGATIVE); OCCULT BLOOD,URINE Negative (NEGATIVE); PH,URINE 7.5 (5.0-8.0); PROTEIN,URINE Negative (NEGATIVE); UROBILINOGEN,URINE 0.2 mg/dL (0.2-1.0)
[2020-12-16] MEDS ORDERED: 1/2 NORMAL SALINE 1,000 ML IV ONE (21:13)
[2020-12-16 23:10] VITALS: BP 116/64
[2020-12-16 23:18] LABS: HEMATOCRIT 18.9 % (42-54)
[2020-12-16] MEDS ORDERED: SODIUM CHLORIDE 0.9% 250 ML IV ONE (23:59)
[2020-12-17] VITALS (22 sets, daily range): BP systolic 92–116; BP diastolic 48–74
[2020-12-17 04:52] LABS: ALBUMIN 2.5 g/dL (3.5-5.0); BILIRUBIN,TOTAL 0.4 mg/dL (0.2-1.0); CREATININE 1.2 mg/dL (0.5-1.5); POTASSIUM 4.4 mmol/L (3.5-5.1); TOTAL PROTEIN, SERUM 4.6 g/dL (6.0-8.3)
[2020-12-17 05:04] LABS: HEMATOCRIT 21.6 % (42-54); MEAN CORPUSCULAR HEMOGLOBIN 30.8 pg (27.0-33.0); MEAN CORPUSCULAR HGB CONC 31.9 g/dL (32.0-36.0); MEAN CORPUSCULAR VOLUME 96.4 fL (79-99); RED BLOOD CELL COUNT(AUTO) 2.24 MIL/uL (4.50-6.20); RED CELL DISTRIBUTION WIDTH 14.9 % (11.0-15.5); WHITE BLOOD COUNT (AUTO) 6.8 K/uL (4.8-10.8)
[2020-12-17] MEDS ORDERED: COMPOUND IV MISC 1 EACH IVSOLN MISC PRN (07:00)
[2020-12-17] MEDS ORDERED: PROPOFOL 10 MG/ML 20ML VIAL IV ONE (08:28)
[2020-12-17] MEDS ORDERED: PANTOPRAZOLE 40 MG/VIAL IVP SCH (09:00)
[2020-12-17] MEDS: IRON SUCROSE COMPLEX 200 MG in SODIUM CHLORIDE 0.9% 50 ML IV SCH (11:17)
[2020-12-17] MEDS: PANTOPRAZOLE 40 MG/VIAL IVP SCH ×3 (11:17→21:14)
[2020-12-17] MEDS: 1/2 NORMAL SALINE 1,000 ML IV SCH ×3 (11:18→21:14)
[2020-12-18 03:59] VITALS: BP 99/47
[2020-12-18 06:22] LABS: HEMATOCRIT 22.9 % (42-54); MEAN CORPUSCULAR HEMOGLOBIN 31.1 pg (27.0-33.0); MEAN CORPUSCULAR HGB CONC 32.8 g/dL (32.0-36.0); NUCLEATED RED BLOOD CELLS 0.3 % (0.0-0.19); RED BLOOD CELL COUNT(AUTO) 2.41 MIL/uL (4.50-6.20); RED CELL DISTRIBUTION WIDTH 15.4 % (11.0-15.5); WHITE BLOOD COUNT (AUTO) 6.3 K/uL (4.8-10.8)
[2020-12-18 06:58] LABS: ALBUMIN 2.4 g/dL (3.5-5.0); BILIRUBIN,TOTAL 0.4 mg/dL (0.2-1.0); POTASSIUM 3.8 mmol/L (3.5-5.1); TOTAL PROTEIN, SERUM 4.4 g/dL (6.0-8.3)
[2020-12-18 08:00] VITALS: BP 104/53
[2020-12-18] MEDS: IRON SUCROSE COMPLEX 200 MG in SODIUM CHLORIDE 0.9% 50 ML IV SCH (10:00)
[2020-12-18] MEDS: PANTOPRAZOLE 40 MG/VIAL IVP SCH (10:00)
[2020-12-18 11:41] VITALS: BP 107/51
== END 2020-12-18 17:45 | disposition home or self-care (01) ==
LOC: EDH 08:57 → EDHIP 10:53 → 3DH 22:37
PROVIDERS: ADMIT Internal Medicine; ATTEND Internal Medicine
DX: K92.1 Melena (principal); Z20.822 Contact with and (suspected) exposure to COVID-19; K29.70 Gastritis, unspecified, without bleeding; K25.9 Gastric ulcer, unspecified as acute or chronic, without hemorrhage or perforation; K22.9 Disease of esophagus, unspecified; D62 Acute posthemorrhagic anemia; I10 Essential (primary) hypertension; I25.10 Atherosclerotic heart disease of native coronary artery without angina pectoris; I48.0 Paroxysmal atrial fibrillation; M19.90 Unspecified osteoarthritis, unspecified site; B37.81 Candidal esophagitis; E78.00 Pure hypercholesterolemia, unspecified; Z95.1 Presence of aortocoronary bypass graft; Z79.899 Other long term (current) drug therapy
CPT/HCPCS: 36415 ×3; 36430; 43239; 71045; 74176; 80053 ×3; 81003; 82270; 82550; 84484; 85014; 85018; 85025; 85027 ×2; 85060; 85610; 85730; 86850; 86900; 86901; 86923 ×2; 87426; 88305; 88312; 88342; 93005; 96361 ×2; 96365; 96366; 96375; 96376 ×2; 99285; A4215; A4222; A4223; A4606; A4620; A4657; C9113 ×5; G0378 ×48; J1756; J2704; J7030 ×2; J7050; P9016 ×2; U0003

== ENCOUNTER 2021-02-07 15:23 | Observation (INO) | payer OTHER ==
[~2021-02-07] VITALS: Ht 167.6 cm; Wt 83.0 kg
[2021-02-07] MEDS ORDERED: ASPIRIN 325 MG TABLET ONE (15:34)
[2021-02-07 15:36] LABS: BASOPHILS % (AUTO) 0.3 % (0.0-5.0); EOSINOPHILS % (AUTO) 0.6 % (0.0-8.0); HEMATOCRIT 38.4 % (42-54); LYMPHOCYTES % (AUTO) 20.8 % (21.0-51.0); MEAN CORPUSCULAR HEMOGLOBIN 30.6 pg (27.0-33.0); MEAN CORPUSCULAR HGB CONC 32.6 g/dL (32.0-36.0); MEAN CORPUSCULAR VOLUME 94.1 fL (79-99); MONOCYTES % (AUTO) 6.8 % (3.0-13.0); NEUTROPHILS % (AUTO) 71.3 % (40.0-77.0); PLATELET COUNT (AUTO) 127 K/uL (130-400); RED BLOOD CELL COUNT(AUTO) 4.08 MIL/uL (4.50-6.20); RED CELL DISTRIBUTION WIDTH 13.9 % (11.0-15.5); WHITE BLOOD COUNT (AUTO) 6.5 K/uL (4.8-10.8)
[2021-02-07 15:48] LABS: CREATININE 1.4 mg/dL (0.5-1.5); POTASSIUM 3.4 mmol/L (3.5-5.1)
[2021-02-07 15:49] LABS: INR 1.16 (0.85-1.15); PROTHROMBIN TIME 12.5 SEC (9.6-11.6)
[2021-02-07 15:51] LABS: PARTIAL THROMBOPLASTIN TIME 33.1 SEC (26.3-35.5)
[2021-02-07 15:52] LABS: ALBUMIN 3.9 g/dL (3.5-5.0); BILIRUBIN,TOTAL 0.4 mg/dL (0.2-1.0); TOTAL PROTEIN, SERUM 7.1 g/dL (6.0-8.3)
[2021-02-07] MEDS ORDERED: DILTIAZEM 50MG VIAL IV ONE (15:57)
[2021-02-07 15:58] LABS: MAGNESIUM 1.9 mg/dL (1.80-2.40); PHOSPHORUS 2.8 mg/dL (2.5-4.9)
[2021-02-07] MEDS ORDERED: DILTIAZEM 125MG+100 ML NS 125 ML IV SCH (19:15)
[2021-02-07] MEDS ORDERED: METOPROLOL TARTRATE 25 MG TAB ONE (20:01)
[2021-02-07] MEDS: METOPROLOL TARTRATE 50 MG TAB PO SCH (20:32)
[2021-02-07] MEDS ORDERED: METO-408 PO (21:05)
[2021-02-07] MEDS ORDERED: RIVA2.5T PO (21:05)
[2021-02-07] MEDS ORDERED: FOLI1 PO (21:05)
[2021-02-07] MEDS ORDERED: CILO100T PO (21:05)
[2021-02-07] MEDS ORDERED: FERR325T22 PO (21:05)
[2021-02-07] MEDS ORDERED: PANT40TA54 PO (21:05)
[2021-02-07] MEDS ORDERED: CYAN25002 PO (21:05)
[2021-02-07] MEDS ORDERED: FURO20TA4 PO (21:05)
[2021-02-07] MEDS ORDERED: ATOR10 PO (21:05)
[2021-02-07 21:30] VITALS: BP 106/55
[2021-02-08 00:50] VITALS: BP 115/68
[2021-02-08 04:07] VITALS: BP 101/55
[2021-02-08 04:25] LABS: BASOPHILS % (AUTO) 0.4 % (0.0-5.0); HEMATOCRIT 35.5 % (42-54); LYMPHOCYTES % (AUTO) 28.8 % (21.0-51.0); MEAN CORPUSCULAR HEMOGLOBIN 29.5 pg (27.0-33.0); MEAN CORPUSCULAR VOLUME 95.2 fL (79-99); MONOCYTES % (AUTO) 8.2 % (3.0-13.0); NEUTROPHILS % (AUTO) 61.2 % (40.0-77.0); PLATELET COUNT (AUTO) 113 K/uL (130-400); RED BLOOD CELL COUNT(AUTO) 3.73 MIL/uL (4.50-6.20); RED CELL DISTRIBUTION WIDTH 13.9 % (11.0-15.5)
[2021-02-08 04:41] LABS: ALBUMIN 3.3 g/dL (3.5-5.0); BILIRUBIN,TOTAL 0.5 mg/dL (0.2-1.0); CREATININE 1.2 mg/dL (0.5-1.5); POTASSIUM 3.9 mmol/L (3.5-5.1); TOTAL PROTEIN, SERUM 6.1 g/dL (6.0-8.3)
[2021-02-08] MEDS: METOPROLOL TARTRATE 50 MG TAB PO SCH (08:31)
== END 2021-02-08 11:00 | disposition home or self-care (01) ==
LOC: EDH 15:23 → EDHIP 16:57 → 4DH 20:18
PROVIDERS: ADMIT Internal Medicine; ATTEND Internal Medicine
DX: R07.89 Other chest pain (principal); Z20.822 Contact with and (suspected) exposure to COVID-19; I48.0 Paroxysmal atrial fibrillation; I25.10 Atherosclerotic heart disease of native coronary artery without angina pectoris; R06.02 Shortness of breath; Z95.1 Presence of aortocoronary bypass graft; I73.9 Peripheral vascular disease, unspecified; Z79.01 Long term (current) use of anticoagulants; I10 Essential (primary) hypertension; E78.5 Hyperlipidemia, unspecified; K21.9 Gastro-esophageal reflux disease without esophagitis; Z87.19 Personal history of other diseases of the digestive system; I74.3 Embolism and thrombosis of arteries of the lower extremities; I87.2 Venous insufficiency (chronic) (peripheral); E78.00 Pure hypercholesterolemia, unspecified
CPT/HCPCS: 36415 ×2; 71045; 80053 ×2; 82550; 83605 ×2; 83735; 83880; 84100; 84484 ×2; 85025 ×2; 85610; 85730; 87426; 93005 ×4; 99285; G0378 ×18; J3490; U0003

== ENCOUNTER → 2021-03-23 | Outpatient (CLI) | payer OTHER ==
[~2021-03-23] MED LIST changes: +ATOR10 PO; +CILO100T PO; +CYAN25002 PO; +FERR325T22 PO; +FOLI1 PO; +FURO20TA4 PO; -IOHEXOL-350 75 ML VIAL IV ONE; +METO-408 PO; +PANT40TA54 PO; +RIVA2.5T PO
== END | disposition home or self-care (01) ==
LOC: OIH 11:17
PROVIDERS: ATTEND Internal Medicine
DX: M19.021 Primary osteoarthritis, right elbow (principal); R22.31 Localized swelling, mass and lump, right upper limb
CPT/HCPCS: 73080

== ENCOUNTER → 2025-04-19 | Outpatient (CLI) | payer OTHER ==
[~2025-04-19] MED LIST changes: -CILO100T PO; +CILO100T3 PO
--- NOTE | 2025-04-19 15:20 | HMCIMG ---
US ABDOMINAL COMPLETE REASON: THROMBOCYTOPENIA COMPARISON: None FINDINGS: There is mild fatty infiltration of the liver. There are no focal mass lesions. The liver is not enlarged.There may be some very small stones present in an otherwise normal-appearing gallbladder. Common duct is normal at 4 mm and intrahepatic biliary tree is not distended. Right kidney is 11 x 4.8 x 4.9 cm, left 12 x 4.7 x 5.2 cm. There are multiple nonobstructing left renal stones, largest 1.4 cm. There are no right renal stones. There are no focal renal masses. Spleen appears normal.. Aorta and inferior vena cava appear normal. Pancreas was not well visualized due to overlying bowel gas. IMPRESSION: 1. Mild fatty infiltration of the liver. 2. There may be some very small nonobstructing gallstones, gallbladder appears otherwise normal. 3. Several nonobstructing kidney stones, largest 1.4 cm, these are present on the left.
== END | disposition home or self-care (01) ==
LOC: RAH 07:14
PROVIDERS: ATTEND Internal Medicine
DX: N20.0 Calculus of kidney (principal); K76.0 Fatty (change of) liver, not elsewhere classified; K80.20 Calculus of gallbladder without cholecystitis without obstruction; D69.6 Thrombocytopenia, unspecified
CPT/HCPCS: 76700